=== PATIENT | female | born 1995 | race Two or more races ===

== ENCOUNTER 2024-07-07 12:37 | Emergency (ER) | payer OTHER ==
[~2024-07-07] VITALS: Ht 170.2 cm; Wt 103.0 kg
[~2024-07-07 12:37] MED LIST: BUDEO.25 IH; PROAIR RESPICL90 MCG IH
[2024-07-07] MEDS ORDERED: CLINDAMYCIN PHOSPHATE 150 MG/ML (600mg) IM ONE (14:15)
[2024-07-07] MEDS ORDERED: CLINDAMYCIN PHOSPHATE 150 MG/ML (300mg) ONE (14:29)
== END 2024-07-07 14:37 | disposition home or self-care (01) ==
LOC: ER 12:38
DX: L02.31 Cutaneous abscess of buttock (principal); Z91.018 Allergy to other foods

== ENCOUNTER 2024-12-25 05:22 | Emergency (ER) | payer OTHER ==
[~2024-12-25] VITALS: Ht 170.2 cm; Wt 104.3 kg
[2024-12-25 06:09] VITALS: BP 131/82; O2SAT 100
[2024-12-25] MEDS ORDERED: ACETAMINOPHEN 500 MG GEL..CAP PO STA (07:30)
[2024-12-25] MEDS ORDERED: ACETAMINOPHEN 500 MG GEL..CAP PO ONE (07:38)
[2024-12-25 08:16] LABS: HEMATOCRIT 39.8 % (36.0-45.00); HEMOGLOBIN 13.6 g/dL (12.0-15.00); MEAN CELL VOLUME 91.6 fL (80.00-100.00); MEAN CORPUSCULAR HEMOGLOBIN 31.3 pg (27.00-32.0); MEAN CORPUSCULAR HGB CONC 34.1 g/dl (32.0-36.0); PLATELET COUNT 274 K/uL (150-450); RED BLOOD COUNT 4.34 M/uL (4.00-6.00); RED CELL DISTRIBUTION WIDTH 12.6 % (11.5-14.5)
== END 2024-12-25 09:44 | disposition home or self-care (01) ==
LOC: ER 05:24
PROVIDERS: General Practice
DX: B34.9 Viral infection, unspecified (principal); R53.81 Other malaise; Z20.822 Contact with and (suspected) exposure to COVID-19; Z91.018 Allergy to other foods

== ENCOUNTER → 2025-02-03 | Emergency (ER) | payer OTHER ==
[~2025-02-03] VITALS: Ht 170.2 cm; Wt 104.3 kg
[~2025-02-03] MED LIST changes: +WELLBUTRIN XL300 MG PO
== END | disposition left against medical advice (07) ==
LOC: ER 20:00
DX: Z53.21 Procedure and treatment not carried out due to patient leaving prior to being seen by health care provider (principal)